=== PATIENT | female | born 1945 | race Caucasian/White ===

== ENCOUNTER 2020-07-30 13:45 | Outpatient (CLI) | payer MEDICARE, OTHER | END 2020-07-30 13:46 | disposition home or self-care (01) | LOC: CSHRAD 13:45 | PROVIDERS: ATTEND Internal Medicine | DX: I25.5 Ischemic cardiomyopathy (principal); I70.90 Unspecified atherosclerosis; I51.7 Cardiomegaly | CPT/HCPCS: 71046 ==